=== PATIENT | male | born 1985 | race Two or more races ===

== ENCOUNTER 2018-12-22 10:51 | Emergency (ER) | payer MEDICAID, OTHER, SELFPAY ==
[~2018-12-22] VITALS: Ht 177.8 cm; Wt 77.5 kg
--- NOTE | 2018-12-22 11:05 | NUR ---
PT STATES HE AWOKE WITH DIFFUSE ABDOMINAL PAIN AND DIARRHEA. PT STATES HE PUT HIS FINGER DOWN HIS THROAT TO MAKE HIMSELF VOMIT LIQUID. PT PALE
[2018-12-22] MEDS ORDERED: PROMETHAZINE 25 MG/ML, 1ML ONE (11:27)
[2018-12-22] MEDS ORDERED: PROMETHAZINE 25 MG/ML, 1ML IM ONE (11:30)
--- NOTE | 2018-12-22 11:30 | NUR ---
lab drawing blood. medicated per mar for n/v
[2018-12-22 11:39] LABS: BASOPHILS # (AUTO) 0.02 x10^3/uL (0-0.1); BASOPHILS % (AUTO) 0 % (0-1); EOSINOPHILS # (AUTO) 0.01 x10^3/uL (0-0.4); EOSINOPHILS % (AUTO) 0 % (1-7); LYMPHOCYTES # (AUTO) 0.96 x10^3/uL (1-3.4); LYMPHOCYTES % (AUTO) 7 % (22-44); MD NO; MEAN CORPUSCULAR HEMOGLOBIN 31.6 pg (27.5-34.5); MEAN CORPUSCULAR HGB CONC 33.6 g/dL (33.2-36.2); MEAN PLATELET VOLUME 7.8 fL (7.4-10.4); MONOCYTES # (AUTO) 0.19 x10^3/uL (0.2-0.8); MONOCYTES % (AUTO) 2 % (2-9); NEUTROPHILS % (AUTO) 91 % (42-75); PLATELET COUNT 222 x10^3/uL (130-400); RED BLOOD COUNT 5.09 x10^6/uL (4.38-5.82); RED CELL DISTRIBUTION WIDTH 13.5 % (9.4-14.8)
[2018-12-22 11:51] LABS: ALBUMIN 4.4 g/dL (3.4-5.0); ANION GAP 8 mmol/L (5-15); CALCIUM 8.9 mg/dL (8.5-10.1); CHLORIDE 112 mmol/L (98-107)
[2018-12-22 11:54] LABS: ALANINE AMINOTRANSFERASE 33 U/L (12-78); ALKALINE PHOSPHATASE 57 U/L (45-117); BILIRUBIN,TOTAL 0.8 mg/dL (0.2-1.0); CREATININE 0.89 mg/dL (0.7-1.3); TOTAL PROTEIN 7.5 g/dL (6.4-8.2)
--- NOTE | 2018-12-22 12:06 | NUR ---
PT UOB TO WHEELCHAIR AND RESTROOM. PT REQUESTING W/C BECAUSE HE FEELS DIZZY. STATES NAUSE IMPROVED AFTER MEDICATED FOR SAME. PT HAD BEEN GIVEN WATER 5 MINUTES AFTER MEDICATED IM AND VOMITED THAT.
[2018-12-22 12:35] VITALS: BP 115/58
--- NOTE | 2018-12-22 12:35 | NUR ---
PT NOW TOLERATING PO CHALLEGENGE
== END 2018-12-22 13:12 | disposition home or self-care (01) ==
LOC: ED 12:53
DX: K52.9 Noninfective gastroenteritis and colitis, unspecified (principal)
CPT/HCPCS: 36415; 80053; 83690; 85025; 96372; 99283; J2550